=== PATIENT | female | born 1975 | race Caucasian/White ===

== ENCOUNTER 2020-10-13 10:36 | Emergency (ER) | payer OTHER, MEDICAID ==
[~2020-10-13] VITALS: Ht 162.6 cm; Wt 63.5 kg
[2020-10-13 11:37] LABS: ABSOLUTE BASOPHILS 0.1 thou/uL (0.0-0.2); ABSOLUTE LYMPHOCYTES 1.2 thou/uL (0.8-5.3); ABSOLUTE MONOCYTES 0.7 thou/uL (0.0-1.2); BASOPHILS 0.4 %; EOSINOPHILS 0.1 %; HEMATOCRIT 43.2 % (37.0-47.0); HEMOGLOBIN 14.4 gm/dL (12.0-15.0); LYMPHOCYTES 9.2 %; MCH 32.7 pg (26.0-34.0); MCHC 33.4 g/dL (28.0-37.0); MCV 97.8 fL (80.0-100.0); MONOCYTES 5.4 %; MPV 9.9 fl. (7.2-11.1); NUCLEATED RBCS 0 /100WBC; PLATELET COUNT* 199 thou/uL (150-400); POLYS 84.9 %; RBC 4.42 mil/uL (4.20-5.00); RDW-CV 14.6 % (10.5-14.5); WBC 12.9 thou/uL (4.0-11.0)
[2020-10-13 11:54] LABS: CALCIUM 8.8 mg/dL (8.5-10.1); CREATININE 0.5 mg/dL (0.6-1.3)
[2020-10-13 11:59] LABS: ALBUMIN 3.3 g/dL (3.4-5.0); TOTAL BILIRUBIN 0.3 mg/dL (<0.1-1.0); TOTAL PROTEIN 7.3 g/dL (6.4-8.2)
[2020-10-13 12:03] LABS: URINE BLOOD 1+ (Negative); URINE CLARITY CLEAR; URINE COLOR YELLOW; URINE GLUCOSE-RANDOM NEGATIVE (Negative); URINE KETONES 1+ (Negative); URINE LEUKOCYTES-REFLEX NEGATIVE (Negative); URINE NITRITE-REFLEX NEGATIVE (Negative); URINE PROTEIN TRACE (Negative); URINE SPECIFIC GRAVITY 1.025 (1.005-1.030); URINE UROBILINOGEN 0.2 E.U./dl (0.2-1.0)
[2020-10-13 12:07] LABS: ICTOTEST (BILI CONFIRMATORY) Negative (Negative); URINE BILIRUBIN 1+ (Negative)
[2020-10-13 12:09] LABS: BACTERIA-REFLEX >30 Many /HPF (None Seen); HYALINE CASTS 0-3 Few /LPF (None Seen); MUCUS 0-3 Light strn/LPF (None Seen); SQUAMOUS >10 Many /LPF (0-3)
[2020-10-13 12:10] LABS: CRYSTALS None Seen /LPF (None Seen); URINE RBC 3-10 Few /HPF (0-2); URINE WBC-REFLEX 0-5 Rare /HPF (0-5)
--- NOTE | 2020-10-13 14:15 | EKG ---
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
[2020-10-13] MEDS ORDERED: PEPCID20 MG PO (14:23)
[2020-10-13] MEDS ORDERED: NORCO5 PO ×2 (14:23→14:59)
[2020-10-13] MEDS ORDERED: ONDANSETRON ODT4 MG PO (14:23)
[2020-10-13] MEDS ORDERED: OMEPRAZOLE 20 M20 M1 PO (14:23)
[2020-10-13 14:55] VITALS: BP 118/75
== END 2020-10-13 14:55 | disposition home or self-care (01) ==
LOC: M.ERS 10:36
PROVIDERS: Physician Assistant
DX: R10.13 Epigastric pain (principal); R11.2 Nausea with vomiting, unspecified; F17.210 Nicotine dependence, cigarettes, uncomplicated; Z98.890 Other specified postprocedural states

== ENCOUNTER 2020-10-16 09:40 | Emergency (ER) | payer OTHER, MEDICAID ==
[~2020-10-16] VITALS: Ht 162.6 cm; Wt 59.0 kg
[~2020-10-16 09:40] MED LIST: NORCO5 PO; OMEPRAZOLE 20 M20 M1 PO; ONDANSETRON ODT4 MG PO; PEPCID20 MG PO
[2020-10-16 10:12] LABS: URINE BILIRUBIN NEGATIVE (Negative); URINE BLOOD 1+ (Negative); URINE CLARITY CLEAR; URINE COLOR YELLOW; URINE GLUCOSE-RANDOM NEGATIVE (Negative); URINE KETONES NEGATIVE (Negative); URINE LEUKOCYTES-REFLEX NEGATIVE (Negative); URINE NITRITE-REFLEX NEGATIVE (Negative); URINE PROTEIN NEGATIVE (Negative); URINE SPECIFIC GRAVITY 1.015 (1.005-1.030); URINE UROBILINOGEN 0.2 E.U./dl (0.2-1.0)
[2020-10-16 10:14] LABS: ABSOLUTE EOSINOPHILS 0.1 thou/uL (0.0-0.7); ABSOLUTE LYMPHOCYTES 1.4 thou/uL (0.8-5.3); ABSOLUTE MONOCYTES 0.8 thou/uL (0.0-1.2); ABSOLUTE NEUTROPHILS 6.3 thou/uL (1.6-8.1); BASOPHILS 0.5 %; EOSINOPHILS 0.8 %; HEMOGLOBIN 14.5 gm/dL (12.0-15.0); LYMPHOCYTES 16.1 %; MCH 33.9 pg (26.0-34.0); MCHC 34.5 g/dL (28.0-37.0); MCV 98.3 fL (80.0-100.0); MONOCYTES 8.8 %; MPV 9.8 fl. (7.2-11.1); NUCLEATED RBCS 0 /100WBC; PLATELET COUNT* 220 thou/uL (150-400); POLYS 73.8 %; RBC 4.27 mil/uL (4.20-5.00); RDW-CV 14.2 % (10.5-14.5); WBC 8.5 thou/uL (4.0-11.0)
[2020-10-16 10:20] LABS: CASTS None Seen /LPF (None Seen); CRYSTALS None Seen /LPF (None Seen); MUCUS 4-6 Moderate strn/LPF (None Seen); SQUAMOUS 0-3 Few /LPF (0-3); URINE RBC 3-10 Few /HPF (0-2); URINE WBC-REFLEX 0-5 Rare /HPF (0-5)
[2020-10-16 10:22] LABS: CALCIUM 8.5 mg/dL (8.5-10.1); CREATININE 0.6 mg/dL (0.6-1.3); POTASSIUM 3.4 mmol/L (3.5-5.1)
[2020-10-16 10:26] LABS: ALBUMIN 3.2 g/dL (3.4-5.0); TOTAL BILIRUBIN 0.4 mg/dL (<0.1-1.0); TOTAL PROTEIN 6.8 g/dL (6.4-8.2)
[2020-10-16] MEDS ORDERED: NORCO5 PO (11:23)
[2020-10-16] MEDS ORDERED: PHENERGAN 25 MG25 M1 PO (11:23)
[2020-10-16] MEDS ORDERED: PROMS25 WY RECTAL (11:23)
[2020-10-16] MEDS ORDERED: CARAFATE1 GM/10 ML PO (11:23)
[2020-10-16] MEDS ORDERED: CEPHALEXIN500 MG PO (11:50)
[2020-10-16 12:13] VITALS: BP 129/73
--- NOTE | 2020-10-17 12:45 | EKG ---
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: : 1975 Requested By: Jaqui Loyola Order Number: [id number] MD: Jed De Luna Measurements Intervals [place] Rate: 59 P: 62 CA: 130 QRS: 64 QRSD: 90 T: 44 QT: 432 QTc: 428 Interpretive Statements Sinus rhythm Probable left ventricular hypertrophy Compared to ECG 10/13/2020 11:34:49 No significant changes Electronically Signed On 10-17-2020 12:45:43 CDT by Jed De Luna [email or web address] <ELECTRONICALLY SIGNED> By: Jed De Luna MD, [facility] 10/17/20 1245 1015 1015 Jed De Luna MD, [facility] /EPI
== END 2020-10-16 12:14 | disposition home or self-care (01) ==
LOC: M.ERS 09:40
PROVIDERS: Nurse Practitioner Family
DX: K25.9 Gastric ulcer, unspecified as acute or chronic, without hemorrhage or perforation (principal); N39.0 Urinary tract infection, site not specified; Z87.19 Personal history of other diseases of the digestive system; Z98.890 Other specified postprocedural states

== ENCOUNTER 2020-12-05 17:15 | Emergency (ER) | payer OTHER ==
[~2020-12-05] VITALS: Ht 162.6 cm; Wt 59.0 kg
[~2020-12-05 17:15] MED LIST changes: +CARAFATE1 GM/10 ML PO; +CEPHALEXIN500 MG PO; +PHENERGAN 25 MG25 M1 PO; +PROMS25 WY RECTAL
[2020-12-05] MEDS ORDERED: PHENERGAN 25 MG25 M1 PO (17:39)
[2020-12-05 18:24] VITALS: BP 135/80
== END 2020-12-05 18:25 | disposition home or self-care (01) ==
LOC: M.ERS 17:15
DX: R11.2 Nausea with vomiting, unspecified (principal); Z98.890 Other specified postprocedural states